=== PATIENT | female | born 1985 | race Caucasian/White ===

== ENCOUNTER 2018-03-16 00:07 | Emergency (ER) | payer OTHER ==
--- NOTE | 2018-03-16 00:40 | EDPHY ---
General Time Seen by Provider: 03/16/18 00:27 Narrative: CHIEF COMPLAINT: Headache, difficulty swallowing HISTORY OF PRESENT ILLNESS: Patient presents with complaints of headache difficulty swallowing. She said she awoke abruptly at 11:45 p.m.. She had a left-sided headache behind the left eye the lasted for several minutes and then resolved. She also has some difficulty swallowing and feels "like there's something stuck in my throat." She reports difficulty swallowing or breathing. She has no pain in the throat. No fever. No cough. No neck pain or stiffness. She has no headache at this time. History of any pharyngeal retropharyngeal abnormalities. She has not felt ill recently. No other associated complaints or modifying factors. REVIEW OF SYSTEMS: Ten systems reviewed and are negative unless otherwise noted in the HPI PCP: Does not recall their name SPECIALISTS: None PAST MEDICAL HISTORY: Bipolar disorder PAST SURGICAL HISTORY: No surgical history SOCIAL HISTORY: Nonsmoker. Lives here independently with his spouse. Works as an audio production engineer FAMILY HISTORY: Noncontributory EXAMINATION General Appearance: Alert, no distress Head: normocephalic, atraumatic Eyes: Pupils equal and round, no conjunctival pallor or injection ENT, Mouth: Mucous membranes moist. Uvula is midline and airway is widely patent. No crepitus. No trismus Neck: Normal inspection, supple, non-tender. Midline trachea Respiratory: Lungs are clear to auscultation Cardiovascular: Regular rate and rhythm. No murmur Gastrointestinal: Abdomen is soft and nontender Back: non-tender, no bony abnormalities Neurological: GCS 15. A&O, nonfocal, normal gait Skin: Warm and dry, no rash. No petechiae or purpura Extremities: Nontender, no pedal edema Psychiatric: Mood and affect normal DIFFERENTIAL DIAGNOSES: Including but not limited to globus pallidus, pharyngeal abscess, retropharyngeal abscess, dysphagia, atypical migraine, cluster headache MDM: 12:25 a.m. Intermittent headache with sensation of "something in my throat" and difficulty swallowing. I do not appreciate anything in the visualize oropharynx. I do not appreciate any abnormality of the thyroid by palpation. Vital signs are within normal limits. I have ordered medication for migraine therapy as well as laboratory studies should we need to proceed with a CT scan of the neck soft tissue. At this point I do not think he needed emergent scan. She has no difficulty managing her airway, vital signs are stable, she is in no acute distress. 1:45 a.m. Patient re-evaluated. She is feeling significantly better. She has no headache. She has minimal sensation in her throat compared to prior to arrival. She has tolerated liquids and solids by mouth at this time. I did offer a CT neck soft tissue for further delineation but she has declined. She says she feels well enough that she would just like to go home. We discussed further care for possible atypical migraine and follow up with primary care physician. I recommended strict ED precautions for any return of her symptoms, difficulty swallowing, difficulty breathing or any drooling. She is comfortable this plan and discharged home stable condition. SUPERVISION: This patient was independently evaluated without direct involvement of or examination by the attending physician. - History Smoking Status: Former smoker - Objective Vital Signs: Initial Vital Signs Temperature (C) 98.2 F 03/16/18 00:08 Heart Rate 70 03/16/18 00:08 Respiratory Rate 11 L 03/16/18 00:08 Blood Pressure 111/80 03/16/18 00:08 O2 Sat (%) 97 03/16/18 00:08 O2 Delivery Mode Room Air Allergies/Adverse Reactions: No Known Allergies Allergy (Unverified 03/16/18 00:13) Home Medications: Medication Instructions Recorded LaMICtal 03/16/18 Laboratory Results: Laboratory Results 03/16/18 00:50 03/16/18 00:50 Medications Given: Discontinued Medications Dexamethasone (Decadron Injection) 10 mg IVP EDNOW ONE Stop: 03/16/18 00:42 Last Admin: 03/16/18 00:53 Dose: 10 mg Diphenhydramine HCl (Benadryl Injection) 25 mg IVP EDNOW ONE Stop: 03/16/18 00:42 Last Admin: 03/16/18 00:53 Dose: 25 mg Sodium Chloride (Ns) 1,000 mls @ 0 mls/hr IV EDNOW ONE; Wide Open PRN Reason: Protocol Stop: 03/16/18 00:42 Last Admin: 03/16/18 00:55 Dose: 1,000 mls Metoclopramide HCl (Reglan Injection) 10 mg IVP EDNOW ONE Stop: 03/16/18 00:42 Last Admin: 03/16/18 00:53 Dose: 10 mg Departure - Departure Disposition: Home, Routine, Self-Care Clinical Impression: Headache Qualifiers: Headache type: unspecified Headache chronicity pattern: acute headache Intractability: not intractable Qualified Code(s): R51 - Headache Dysphagia Qualifiers: Dysphagia type: unspecified Qualified Code(s): R13.10 - Dysphagia, unspecified Condition: Good Instructions: Dysphagia (ED) Additional Instructions: 1. Continue antihistamine and anti-inflammatories same-[id number] for the next 24 hr 2. Return to emergency department in 24 hr if you do not have complete resolution of the symptoms 3. Return to emergency department if you have any difficulty swallowing, breathing or tolerating liquids 4. Contact primary care physician on Sunday for outpatient care Referrals: NONE *PRIMARY CARE P,. [Primary Care Provider] - As per Instructions
[2018-03-16] MEDS ORDERED: DEXAMETHASONE 10 MG/ML VIAL IVP ONE (00:41)
[2018-03-16] MEDS ORDERED: NS 1,000 ML IV ONE (00:41)
[2018-03-16] MEDS ORDERED: METOCLOPRAMIDE 10 MG/2 ML VIAL IVP ONE (00:41)
[2018-03-16 01:03] LABS: PLATELET COUNT 289 10^3/uL (150-400)
[2018-03-16 01:56] VITALS: BP 106/66
== END 2018-03-16 01:55 | disposition home or self-care (01) ==
DX: R51 Headache (principal); R13.10 Dysphagia, unspecified; E86.9 Volume depletion, unspecified; Z87.891 Personal history of nicotine dependence
CPT/HCPCS: 96374; J1100; J1200; J2765